=== PATIENT | male | born 1965 | race Caucasian/White ===

== ENCOUNTER 2019-05-26 05:58 | Day surgery (SDC) | payer BC, OTHER ==
[2019-05-24 10:33] VITALS: BMI 30.9
--- NOTE | 2019-05-25 22:25 | HP ---
HISTORY AND PHYSICAL DATE OF SURGERY: 05/26/2019 HISTORY OF PRESENT ILLNESS: Rod Dyer is a 53-year-old patient seen with progressive left shoulder pain. Treatment options were discussed. He elected to proceed with arthroscopy. Consent was obtained. Medical clearance was provided by Dr. Daniel. PAST MEDICAL HISTORY: 1. Hyperlipidemia. 2. Hypertension. 3. Dxp-jveqhlr-rtobdbaac diabetes. PAST SURGICAL HISTORY: Ankle surgery. DAILY MEDICATIONS: 1. Atorvastatin. 2. Lisinopril. 3. Metformin. ALLERGIES: NONE. SOCIAL HISTORY: He denies tobacco use. PHYSICAL EVALUATION OF LEFT SHOULDER: Flexion 150 degrees, abduction 140 degrees, external rotation 0 with pain and weakness. Tenderness along the anterolateral acromion and rotator cuff insertion site. Impingement sign is positive at 90. Drop-arm sign is positive. Distal neurovascular exam is intact. IMAGING: Left shoulder radiographs revealed a type 2 anterior acromion, acromioclavicular joint osteoarthritis, and cystic changes of the tuberosity. Left shoulder MRI revealed a massive retracted rotator cuff tendon tear. IMPRESSION: 1. Left shoulder impingement with retracted rotator cuff tendon tear. 2. Left shoulder acromioclavicular joint osteoarthritis. 3. Hypertension. 4. Hyperlipidemia. 5. Pkr-amxdiit-krfiwalwd diabetes. PLAN: Left shoulder arthroscopy with subacromial decompression, possible arthroscopic rotator cuff repair, possible Urvashi procedure and debridement. MMODL / IJN: [id number] /
[~2019-05-26 05:58] MED LIST: DEXAMETHASONE SOD PHOSPHATE 10 MG/ML 1 ML VIAL IV ONE; HYDROmorphone 0.5 MG/0.5 ML SYRINGE IVP PRN; LACTATED RINGERS 1,000 ML IV SCH; MIDAZOLAM 2 MG/2 ML VIAL IV PRN; ONDANSETRON 4 MG/2 ML VIAL IVP ONE
[2019-05-26] MEDS ORDERED: ONDANSETRON 4 MG/2 ML VIAL IVP ONE (06:38)
[2019-05-26] MEDS ORDERED: DEXAMETHASONE SOD PHOSPHATE 10 MG/ML 1 ML VIAL IV ONE (06:39)
[2019-05-26 06:44] LABS: Glucose,Whole Blood 141 mg/dL (75-99)
[2019-05-26] MEDS ORDERED: fentaNYL (PF) 50 MCG/ML 2 ML AMP ONE (07:19)
[2019-05-26] MEDS ORDERED: MIDAZOLAM 2 MG/2 ML VIAL ONE (07:19)
[2019-05-26] MEDS ORDERED: ePHEDrine SULFATE/0.9% NACL/PF 50 MG/5 ML SYRINGE IV ONE (07:19)
[2019-05-26] MEDS ORDERED: PROPOFOL 10 MG/ML 20 ML VIAL IV ONE (07:19)
[2019-05-26] MEDS ORDERED: DEXAMETHASONE SOD PHOSPHATE 4 MG/ML 1 ML VIAL ONE (07:19)
[2019-05-26] MEDS ORDERED: LIDOCAINE 1% INJ 10MG/ML (20 ML MDV) ONE (07:19)
[2019-05-26] MEDS ORDERED: ROPIVACAINE 5 MG/ML 30 ML VIAL ONE (07:19)
[2019-05-26] MEDS ORDERED: PHENYLEPHRINE-0.9% NACL SYG 1 MG/10 ML SYRINGE ONE (07:19)
[2019-05-26] MEDS ORDERED: SUCCINYLCHOLINE CHLORIDE 100 MG/5 ML SYR IV ONE (07:19)
--- NOTE | 2019-05-26 09:12 | P.OP ---
Date of Procedure: 05/26/19 Preoperative Diagnosis: Left shoulder impingement Postoperative Diagnosis: 1. Left shoulder rotator cuff tear 2. Left shoulder impingement 3. Left shoulder acromioclavicular joint osteoarthritis 4. Left shoulder partial long head biceps tendon tear 5. Left shoulder superficial labral tear Procedure(s) Performed: 1. Left shoulder arthroscopic rotator cuff repair 2. Left shoulder arthroscopic subacromial decompression 3. Left shoulder arthroscopic Urvashi procedure 4. Left shoulder arthroscopic biceps tenotomy 5. Left shoulder arthroscopic debridement labral tear Implants: 44.75 Arthrex swivel lock anchors Anesthesia: GETA, regional (Interscalene block) Surgeon: Matt Gallegos Passenger Booking Clerk #1: Joce Adame Estimated Blood Loss (ml): 7 Pathology: none sent Condition: stable Disposition: PACU Indications for Procedure: 53-year-old patient seen with progressive left shoulder pain. After having treatment options discussed, he elected to proceed with arthroscopy. Operative Findings: see description of procedure Description of Procedure: Patient underwent an interscalene block by department of anesthesia for postoperative pain management. The patient was then taken to the operative suite. The patient underwent a general anesthetic by the department of anesthesia. The patient was placed into a lateral position and secured. There was appropriate padding of the bony prominence. Left shoulder was then prepped and draped in normal sterile orthopedic fashion. We placed the extremity in 10 pounds of longitudinal traction. A posterior incision was now made for a posterior working portal site. The trocar and cannula were inserted into the glenohumeral joint. Arthroscopy was initiated. Spinal needle was now inserted anteriorly, to ascertain the anterior working portal site. An incision was now made in that area, a trocar was inserted followed by a probe. There was an obvious massive rotator cuff tear could visualize from the glenohumeral side. There was superficial tearing of the anterior and superior labrum. There was partial tearing long head biceps tendon. I performed an arthroscopic biceps tenotomy. I debrided the superficial labral tear down to stable labral tissue. The residual labrum was probed and found to be stable. Instruments were now removed from the glenohumeral joint. Utilizing the posterior working portal site, the trocar and cannula were inserted into the subacromial space. Arthroscopy initiated. I made an incision 2 fingerbreadths lateral to the acromion. I introduced my trocar followed by my ArthroCare ablator. I now began ablating thick subacromial bursal tissue, which exposed the undersurface of the anterior acromion. There was diminished subacromial space. There was a very prominent anterior acromion. A motorized bur was introduced and a subacromial decompression was performed. I also excised some osteophytes off the inferior aspect of the distal clavicle. The AC joint was visualized and noted to be fairly arthritic. The motorized bur was introduced in the anterior portal site and a Urvashi procedure was performed without difficulty, decompressing the AC joint nicely. I turned my attention to the rotator cuff. There was a 3 cm rotator cuff tear. It was fairly retracted patella was able to pull it over the footprint without much tension. I debrided the margins getting down to stable tendon tissue. I introduced my motorized bur and abraded the footprint area, getting some petechial bleeding. I now made an accessory portal site off the lateral aspect of the acromion. I punched 2 holes medial for medial row fixation with the assistance of Tato RODNEY carefully tapping the punch with a mallet as I held the punch and the camera. I now introduced both anchors into the pre-punched holes and Tato RODNEY tapped them with the mallet as I held anchors and the camera. Tato RODNEY now screwed the anchors in place a while I held the anchor guide and camera. All 8 limbs of suture were now passed through good bites of rotator cuff tendon. I now punched 2 holes for lateral row fixation again I held the punch and camera while Tato RODNEY used a mallet to tap in the punch. We now passed sutures through both anchors and individually I introduced the anchors into the pre- punch holes I held the anchor guide in position with one hand holding the camera with the other hand while Tato RODNEY tensioned the sutures and screwed in the anchors one at a time. All residual suture limbs were now clipped. We had good compression of the tendon along the entire footprint. I injected 1 mL Renyte intra-articular. Instruments now removed from the portal sites. All portal sites were approximated with nylon suture. Sterile dressings were applied followed by a shoulder immobilizer. Joce RODNEY assisted in this complex case. The patient was awakened, transferred to a bed, and taken to recovery in stable condition.
[2019-05-26 09:21] VITALS: TEMP 97
[2019-05-26 09:28] LABS: Glucose,Whole Blood 199 mg/dL (75-99)
[2019-05-26 09:43] VITALS: RESP 16
[2019-05-26] MEDS ORDERED: LACTATED RINGERS 1,000 ML IV ONE (09:43)
[2019-05-26 11:27] VITALS: BP 144/70; PULSE 108
--- NOTE | 2019-05-27 07:20 | P.ANPRN ---
Procedure Note - Anesthesia - Nerve Block Performed Left Interscalene Single Time Out Performed: Yes Date of Procedure: 05/26/19 Procedure Start Time: 07:02 Procedure Stop Time: 07:09 Location of Patient Procedure: PreOp Indication: Acute Post-Operative Pain, Requested by Surgeon Sedation Type: Sedate with meaningful contact maintained Preparation: Sterile Prep, Sterile Dressing Position: Supine Needle Types: Pajunk Needle Gauge: 21 Ultrasound used to visualize needle placement: Yes Ultrasound used to observe medication spread: Yes Blood Aspirated: No Pain Paresthesia on Injection Noted: No Resistance on Injection: Normal Image Stored and Saved: Yes Events: Uneventful and Well Tolerated (ropi .5% 30cc plus dexamethasone 4mg)
== END 2019-05-26 10:35 | disposition home or self-care (01) ==
LOC: OR 05:58
PROVIDERS: ATTEND Orthopaedic Surgery
DX: M75.102 Unspecified rotator cuff tear or rupture of left shoulder, not specified as traumatic (principal); M75.42 Impingement syndrome of left shoulder; M19.012 Primary osteoarthritis, left shoulder; S46.112A Strain of muscle, fascia and tendon of long head of biceps, left arm, initial encounter; S43.432A Superior glenoid labrum lesion of left shoulder, initial encounter; M25.712 Osteophyte, left shoulder; X58.XXXA Exposure to other specified factors, initial encounter; I10 Essential (primary) hypertension; E78.5 Hyperlipidemia, unspecified; E11.9 Type 2 diabetes mellitus without complications; Z79.84 Long term (current) use of oral hypoglycemic drugs; Z79.899 Other long term (current) drug therapy
CPT/HCPCS: 29826; 29827; 29824; 64415; 76942; C1713 ×2; Q4212; J2250; J1100 ×2; J0690; J2405; J2001; J3010; J2795; J2370; J0330; J2704

== ENCOUNTER → 2019-06-13 | Outpatient (CLI) | payer OTHER ==
--- NOTE | 2019-06-13 12:56 | US ---
EXAMINATION TYPE: US venous doppler duplex LE RT DATE OF EXAM: 06/13/2019 12:37 PM COMPARISON: NONE CLINICAL HISTORY: 53-year-old male R Leg, R60.0 Edema. Patient c/o right lateral calf pain today; pos t left rotator cuff surgery 14 days ago SIDE PERFORMED: Right TECHNIQUE: The lower extremity deep venous system is examined utilizing real time linear array sonog ayaan with graded compression, doppler sonography and color-flow sonography. FINDINGS: VESSELS IMAGED: Common Femoral Vein Deep Femoral Vein Greater Saphenous Vein * Femoral Vein Popliteal Vein Small Saphenous Vein * Proximal Calf Veins (* superficial vessels) Right Leg: Negative for DVT. No fluid seen at patient's pain area. A borderline sized 1.5 cm short axis right inguinal lymph node is incidentally noted. IMPRESSION: 1. No evidence for DVT within the right lower extremity imaged from the groin to the upper calf. 2. Borderline sized 1.5 cm right inguinal lymph node, likely reactive/post inflammatory. 3. No abnormal fluid collection identified along the lateral calf at the site of patient's pain.
== END | disposition home or self-care (01) ==
LOC: RADUSWWP 12:06
PROVIDERS: ATTEND Internal Medicine
DX: M79.661 Pain in right lower leg (principal); R60.0 Localized edema

== ENCOUNTER → 2020-12-12 | Outpatient (CLI) | payer OTHER ==
[2020-12-13 00:09] LABS: African American GFR (CKD) 109.5 (60.0-200.0); Albumin 4.1 g/dL (3.80-4.90); Albumin/Globulin Ratio 2.73 (1.60-3.17); BUN/Creat Ratio 16.67 Ratio (12.00-20.00); Calcium 9.2 mg/dL (8.7-10.3); Chol/HDL Ratio 4.82; Globulin 1.5 g/dL (1.6-3.3); LDL Cholesterol,Calculated 92.4 mg/dL (0.0-131.0); Non-African American GFR(CKD) 94.5 (60.0-200.0); Potassium 4.2 mmol/L (3.5-5.5); Total Bilirubin 0.6 mg/dL (0.3-1.2); Total Protein 5.6 g/dL (6.2-8.2); VLDL Calculation 37.6 mg/dL (5.00-40.00)
[2020-12-13 00:16] LABS: PSA Annual Screen 1.4 ng/mL (0.0-4.0)
== END | disposition home or self-care (01) ==
LOC: LABWHC1 11:05
PROVIDERS: ATTEND Nurse Practitioner Adult Health
DX: I10 Essential (primary) hypertension (principal); E11.9 Type 2 diabetes mellitus without complications; E78.5 Hyperlipidemia, unspecified
CPT/HCPCS: 80061; 80053; 84443; 82306; 36415; G0103

== ENCOUNTER → 2021-07-23 | Outpatient (CLI) | payer OTHER ==
--- NOTE | 2021-07-23 12:49 | US ---
EXAMINATION TYPE: US thyroid st tissue head/neck DATE OF EXAM: 07/23/2021 COMPARISON: NONE CLINICAL HISTORY: R22.1 neck nodule. Patient has palpable anterior neck mass. Patient states 4 weeks ago he had very enlarged lymph nodes causing difficulty swallowing. After antibiotic, patient states swelling is much better but now feels this anterior lump. History of thyroid nodule. GLAND SIZE: Right Lobe: 4.5 x 2.2 x 1.8 cm Overall Parenchyma: homogenous Left Lobe: 4.3 x 2.1 x 1.7 cm Overall Parenchyma: homogeneous Isthmus Thickness: 0.5 cm NODULES RIGHT: # of nodules measured on right: 0 LEFT: # of nodules measured on left: 1 1. 0.7 X 0.6 x 0.5 cm, mid mid, solid or almost completely solid, hypoechoic nodule, which is wider than tall, with smooth margins, without echogenic foci. Prior size: No previous ISTHMUS: # of nodules measured in the isthmus: 0 Bilateral neck scanned, no evidence of lymphadenopathy. bilateral sub centimeter lymph nodes noted. Anterior visible/palpable lump at area of "rodríguez apple" = complex measuring 3.6 x 2.5 x 2.0 cm contai veena internal echos (? blood) highly vascular on outer edges of mass. IMPRESSION: Nonspecific thyroid nodularity. Consider tissue diagnosis of the large complex lesion.
== END | disposition home or self-care (01) ==
LOC: RADUSWWP 11:52
PROVIDERS: ATTEND Internal Medicine
DX: E04.1 Nontoxic single thyroid nodule (principal)
CPT/HCPCS: 76536

== ENCOUNTER → 2022-04-10 | Outpatient (CLI) | payer OTHER ==
--- NOTE | 2022-04-10 14:53 | MR ---
EXAMINATION TYPE: MR shoulder RT wo con DATE OF EXAM: 04/10/2022 COMPARISON: Outside right shoulder x-ray February 14, 2022 HISTORY: RIGHT SHOULDER PAIN for 6 months with difficulty raising arm overhead TECHNIQUE: Multiplanar, multisequence imaging of the right shoulder is performed without contrast. FINDINGS: Rotator Cuff: Complete retracted tear of the anterior one half distal supraspinatus tendon with stump retracted to level of the acromioclavicular joint coronal image 10. Infraspinatus tendon remains int act with some areas of increased signal and partial tearing noted along its course. Subscapularis ten don intact. Rotator cuff muscle block shows mild fatty replacement and atrophy of the supraspinatus m uscular bulk. Acromioclavicular Joint: Moderate narrowing with more severe capsular hypertrophy and bony formation along the superior aspect of the distal clavicle. Mild to moderate spurring Glenohumeral Joint: Moderate narrowing with small joint effusion. No significant spurring. Labrum: The superior labrum shows increased signal consistent with degenerative tearing. Biceps Tendon: The long head of biceps is in normal location within bicipital groove. Bone marrow signal: Subchondral cystic change superolateral humeral head. Other: No additional significant abnormality is appreciated. IMPRESSION: 1. Full-thickness retracted tear of the posterior one half fibers of the supraspinatus tendon. There is mild generalized muscular atrophy of the supraspinatus muscle bulk. 2. Moderate to severe AC joint arthropathy as detailed above.
== END | disposition home or self-care (01) ==
LOC: RADMRIMAIN 07:24
PROVIDERS: ATTEND Orthopaedic Surgery
DX: M12.811 Other specific arthropathies, not elsewhere classified, right shoulder (principal)

== ENCOUNTER 2022-06-05 07:46 | Day surgery (SDC) | payer OTHER ==
[2022-05-30 14:43] VITALS: BMI 31.7
--- NOTE | 2022-06-05 05:40 | HP ---
HISTORY AND PHYSICAL DATE OF SURGERY: Surgery is scheduled for 06/05/2022. HISTORY OF PRESENT ILLNESS: Rod Dyer is a 56-year-old gentleman, seen with progressive right shoulder pain. We discussed options for treatment. He elected to proceed with right shoulder arthroscopy. Consent was obtained. PAST MEDICAL HISTORY: Hypertension, hyperlipidemia, oeh-dkkmkrs-mvttzkuci diabetes. PAST SURGICAL HISTORY: Shoulder arthroscopy, ankle surgery. DAILY MEDICATIONS: 1. Atenolol. 2. Atorvastatin. 3. Glipizide. 4. Metformin. ALLERGIES: None. SOCIAL HISTORY: Denies tobacco use. PHYSICAL EVALUATION OF THE RIGHT SHOULDER: Flexion is 150 degrees, abduction is 140 degrees, external rotation is 30 degrees with pain and weakness. Tenderness along the anterolateral acromion, rotator cuff insertion. Impingement is positive at 90 degrees. Cross-body adduction sign is positive. Drop-arm sign is positive. Distal neurovascular exam is intact. RADIOGRAPHS: Right shoulder radiographs revealed a type 2 acromion, cystic changes of the greater tuberosity. MRI of the right shoulder revealed a retracted rotator cuff tendon tear, acromioclavicular joint osteoarthritis. IMPRESSION: 1. Right shoulder impingement with retracted rotator cuff tendon tear. 2. Right shoulder acromioclavicular joint osteoarthritis. 3. Hypertension. 4. Hyperlipidemia. 5. Tzi-eqpteov-wjhaerkbl diabetes. PLAN: Right shoulder arthroscopy with subacromial decompression, arthroscopic rotator cuff repair, Urvashi procedure, and debridement. MMODL / IJN: [id number] /
[2022-06-05] MEDS ORDERED: HYDROmorphone 0.5 MG/0.5 ML SYRINGE IVP PRN (07:54)
[2022-06-05] MEDS ORDERED: LACTATED RINGERS 1,000 ML IV SCH (07:54)
[2022-06-05] MEDS ORDERED: SCOPOLAMINE 1 MG/72 HR PATCH TRANSDERM ONE (07:54)
[2022-06-05] MEDS ORDERED: LIDOCAINE 1% (10MG/ML) FOR IV START INTRADERMA PRN (07:54)
[2022-06-05] MEDS ORDERED: DEXAMETHASONE SOD PHOSPHATE 4 MG/ML 1 ML VIAL IV ONE (07:54)
[2022-06-05] MEDS ORDERED: ONDANSETRON 4 MG/2 ML VIAL IVP ONE (07:54)
[2022-06-05 08:43] LABS: Glucose,Whole Blood 177 mg/dL (70-110)
[2022-06-05] MEDS ORDERED: MIDAZOLAM 2 MG/2 ML VIAL IVP ONE (09:16)
[2022-06-05] MEDS ORDERED: ROPIVACAINE 5 MG/ML 30 ML VIAL ONE (09:35)
[2022-06-05] MEDS ORDERED: fentaNYL (PF) 50 MCG/ML 2 ML AMP ONE (09:35)
[2022-06-05] MEDS ORDERED: SUCCINYLCHOLINE CHLORIDE 200 MG/10 ML VIAL IV ONE (09:35)
[2022-06-05] MEDS ORDERED: MIDAZOLAM 2 MG/2 ML VIAL ONE (09:35)
[2022-06-05] MEDS ORDERED: LIDOCAINE 2% INJ 20 MG/ML (2 ML VIAL) ONE (09:35)
[2022-06-05] MEDS ORDERED: PROPOFOL 10 MG/ML 20 ML VIAL IV ONE (09:35)
[2022-06-05] MEDS ORDERED: DEXAMETHASONE SOD PHOSPHATE 4 MG/ML 1 ML VIAL ONE (09:35)
[2022-06-05] MEDS ORDERED: LACTATED RINGERS 1,000 ML IV ONE (10:40)
--- NOTE | 2022-06-05 11:32 | P.OP ---
Date of Procedure: 06/05/22 Preoperative Diagnosis: Right shoulder impingement Postoperative Diagnosis: 1. Right shoulder rotator cuff tear 2. Right shoulder impingement 3. Right shoulder partial long head biceps tendon tear 4. Right shoulder superficial superior labral tear Procedure(s) Performed: 1. Right shoulder arthroscopic rotator cuff repair 2. Right shoulder arthroscopic subacromial decompression 3. Right shoulder arthroscopic biceps tenotomy 4. Right shoulder arthroscopic debridement labral tear Implants: 3Arthrex 4.75 swivel lock anchors 1Arthrex 5.5 swivel lock anchor Anesthesia: GETA, regional (Interscalene block) Surgeon: Matt Gallegos Emergency Physician #1: Joce Adame Estimated Blood Loss (ml): 11 Pathology: none sent Condition: stable Disposition: PACU Indications for Procedure: 56-year-old gentleman seen with progressive right shoulder pain. After treatment options were discussed with him, he elected to proceed with arthroscopy. Operative Findings: See description of procedure Description of Procedure: Patient underwent an interscalene block by department of anesthesia. The patient was then taken to the operative suite. The patient underwent a general anesthetic by the department of anesthesia. The patient was placed into a lateral position and secured. There was appropriate padding of the bony prominence. Right shoulder was then prepped and draped in normal sterile orthopedic fashion. We placed the extremity in 10 pounds of longitudinal traction. A posterior incision was now made for a posterior working portal site. The trocar and cannula were inserted into the glenohumeral joint. Arthroscopy was initiated. Spinal needle was now inserted anteriorly, to ascertain the anterior working portal site. An incision was now made in that area, a trocar was inserted followed by a probe. There was some hyperemia and partial tearing long head biceps tendon. There were grade 1/2 chondromalacia changes of the glenoid fossa. There was some tearing and fraying of the superior labrum. I debrided out the superficial tearing of the superior labrum. I performed an arthroscopic biceps tenotomy. The residual labrum was probed and was found to be stable. Instruments were now removed from glenohumeral joint. Utilizing the posterior working portal site, the trocar and cannula were inserted into the subacromial space. Arthroscopy initiated. I made an incision 2 fingerbreadths lateral to the acromion. I introduced my trocar followed by my ArthroCare ablator. I now began ablating thick subacromial bursal tissue, which exposed the undersurface of the anterior acromion. There was diminished subacromial space. There was a very prominent anterior acromion. A motorized bur was introduced and a subacromial decompression was performed. I also excised some osteophytes off the inferior aspect of the distal clavicle. The AC joint was visualized and noted to be moderately arthritic, I did not think enough toward a Urvashi procedure. I turned my attention to the rotator cuff. There was a 3.5 cm rotator cuff tear. I debrided the margins getting down to stable tendon tissue. There was a large intrasubstance component centrally. I repaire d that with 3 converging sutures. I could now mobilize the tendon over the footprint. I introduced my motorized bur and abraded the footprint area, getting some petechial bleeding. I now made an accessory portal site off the lateral aspect of the acromion. I punched 2 holes medial for medial row fixation with the assistance of Tato RODNEY carefully tapping the punch with a mallet as I held the punch and the camera. I now introduced both anchors into the pre- punched holes and Tato RODNEY tapped them with the mallet as I held anchors and the camera. Tato RODNEY now screwed the anchors in place a while I held the anchor guide and camera. All 8 limbs of suture were now passed through good bites of rotator cuff tendon. I now punched 2 holes for lateral row fixation again I held the punch and camera while Tato RODNEY used a mallet to tap in the punch. We now passed sutures through both anchors and individually I introduced the anchors into the pre-punch holes I held the anchor guide in position with one hand holding the camera with the other hand while Tato RODNEY tensioned the sutures and screwed in the anchors one at a time. All residual suture limbs were now clipped. We had good compression of the tendon along the entire footprint. Instruments now removed from the portal sites. All portal sites were approximated with nylon suture. Sterile dressings were applied followed by a shoulder immobilizer. Joce RODNEY assisted in this complex case. The patient was awakened, transferred to a bed, and taken to recovery in stable condition.
[2022-06-05 11:35] VITALS: TEMP 987
[2022-06-05] MEDS ORDERED: HYDROcodone/APAP 7.5-325MG 1 EACH TAB ONE (12:57)
[2022-06-05] MEDS ORDERED: HYDROcodone/APAP 7.5-325MG 1 EACH TAB PO ONE (12:58)
[2022-06-05 13:16] VITALS: BP 158/82; PULSE 72; RESP 18
--- NOTE | 2022-06-05 19:36 | P.ANPRN ---
Procedure Note - Anesthesia - Nerve Block Performed Right Interscalene Single Time Out Performed: Yes Date of Procedure: 06/05/22 Procedure Start Time: :15 Procedure Stop Time: : Location of Patient: PreOp Indication: Acute Post-Operative Pain, Requested by Surgeon Sedation Type: Sedate with meaningful contact maintained Preparation: Sterile Prep Position: Supine Needle Types: Pajunk Needle Gauge: 21 Ultrasound used to visualize needle placement: Yes Ultrasound used to observe medication spread: Yes Blood Aspirated: No Pain Paresthesia on Injection Noted: No Resistance on Injection: Normal Image Stored and Saved: Yes Events: Uneventful and Well Tolerated (ropi .5% 20cc plus dexamethasone 4mg)
== END 2022-06-05 13:50 | disposition home or self-care (01) ==
LOC: OR 07:46
PROVIDERS: ATTEND Orthopaedic Surgery
DX: M75.41 Impingement syndrome of right shoulder (principal); M75.111 Incomplete rotator cuff tear or rupture of right shoulder, not specified as traumatic; S46.911A Strain of unspecified muscle, fascia and tendon at shoulder and upper arm level, right arm, initial encounter; S43.431A Superior glenoid labrum lesion of right shoulder, initial encounter; M19.011 Primary osteoarthritis, right shoulder; I10 Essential (primary) hypertension; E78.5 Hyperlipidemia, unspecified; E11.9 Type 2 diabetes mellitus without complications; Z79.899 Other long term (current) drug therapy; X58.XXXA Exposure to other specified factors, initial encounter
CPT/HCPCS: 29827; 29826; 64415; J2250; J1100; J0690; J2405; 76942

== ENCOUNTER → 2022-12-29 | Outpatient (CLI) | payer OTHER ==
[2022-12-29 14:18] LABS: African American GFR (CKD) >90 (>60 ml/min/1.73 sqM); Blood Urea Nitrogen 19 mg/dL (9-20); Non-African American GFR(CKD) >90 (>60 ml/min/1.73 sqM)
--- NOTE | 2022-12-29 15:18 | CT ---
EXAMINATION TYPE: CT soft tissue neck w con DATE OF EXAM: 12/29/2022 HISTORY: left side neck swelling, bb placed over area COMPARISON: NONE CT DLP: 698 mGycm. Automated Exposure Control for Dose Reduction was Utilized. TECHNIQUE: CT scan of the neck is performed with IV Contrast, patient injected with 100 mL of Isovue 300, axial images are obtained, coronal and sagittal reformatted images are reviewed. FINDINGS: Airway: There are few tiny hypodense nodules scattered throughout the bilateral thyroid lobes. No gre ater than 1.0 cm thyroid nodules. No obvious tongue base or mucosal mass or neoplasm. Parotid/submandibular glands: No gross abnormality seen. Carotid/Vascular Structures: Mild peripheral plaque proximal left internal carotid artery. Osseous Structures: Grade 1 retrolisthesis C3 on C4. Mild to moderate disc space narrowing C3-C4 leve l. Mild to moderate disc space narrowing with moderate spurring C6-C7 level. Other: Corresponding to palpable abnormality left neck is metallic BB axial image 42. There is hetero geneous 3.1 x 2.4 cm oval mass at this level having local mass effect causing carotid and jugular ves sels to be deviated laterally. Just below this there is second heterogeneous oval 3.2 x 2.2 cm mass a xial image 48 having local mass effect being at the superior level of the hyoid bone. This extends in feriorly past the level of the inferior hyoid bone. Nasal septum is deviated to left of midline. IMPRESSION: Abnormal heterogeneous left-sided neck masses suspicious for abnormal probable necrotic a denopathy. Primary throat or tongue base mucosal neoplasm needs to be considered despite lack of obvi ous mass on CT. Advise ENT referral to further evaluate. PET/CT follow-up may be beneficial to furnaidne r evaluate.
== END | disposition home or self-care (01) ==
LOC: RADCTMAIN 13:42
PROVIDERS: ATTEND Internal Medicine
DX: R22.1 Localized swelling, mass and lump, neck (principal)
CPT/HCPCS: 82565; 84520; 70491; 36415; Q9967

== ENCOUNTER 2023-01-21 06:20 | Day surgery (SDC) | payer OTHER ==
[2023-01-21] MEDS ORDERED: LACTATED RINGERS 1,000 ML IV SCH (06:43)
[2023-01-21] MEDS ORDERED: LIDOCAINE 1% (10MG/ML) FOR IV START INTRADERMA PRN (06:43)
[2023-01-21 06:49] VITALS: RESP 16
[2023-01-21 07:03] LABS: Glucose,Whole Blood 99 mg/dL (70-110)
[2023-01-21] MEDS ORDERED: PROPOFOL 10 MG/ML 20 ML VIAL IV ONE (07:41)
--- NOTE | 2023-01-21 07:57 | P.PCN ---
Date of Procedure: 01/21/23 Procedure(s) Performed: BRIEF HISTORY: Patient is a 57-year-old pleasant white male scheduled for an elective colonoscopy as a part of screening for colon cancer. PROCEDURE PERFORMED: Colonoscopy with snare polypectomy.. PREOPERATIVE DIAGNOSIS: Screening for colon cancer. IV sedation per Anesthesia. PROCEDURE: After informed consent was obtained, the patient, was brought into the endoscopy unit. IV sedation was administered by Anesthesia under continuous monitoring. Digital rectal examination was normal. Initially the Olympus CF-160 flexible video colonoscope was then inserted in the rectum, gradually advanced into the cecum without any difficulty. Careful examination was performed as the scope was gradually being withdrawn. Ileocecal valve and the appendiceal orifice were visualized and appeared normal. Prep was excellent. Mucosa of the cecum, ascending colon, transverse colon, descending colon, sigmoid colon, and rectum appeared normal. In the distal rectum at 7 cm from the anal verge there was a 1.3 cm submucosal polyp that was removed by snare polypectomy and complete polypectomy accomplished. Retroflexion was performed in the rectum and grade 2 internal hemorrhoids were seen. The patient tolerated the procedure well. IMPRESSION: 1.3 cm distal rectal submucosal polyp status post polypectomy Grade 2 internal hemorrhoids RECOMMENDATIONS: Findings of this examination were discussed with the patient as well as his family.. He was advised to follow with the biopsy results. Based on the the biopsy results will plan a repeat surveillance colonoscopy in 3 years.
[2023-01-21 08:17] VITALS: BP 134/79; PULSE 69
== END 2023-01-21 08:42 | disposition home or self-care (01) ==
LOC: ORWHC2ENDO 06:20
PROVIDERS: ATTEND Internal Medicine Gastroenterology
DX: Z12.11 Encounter for screening for malignant neoplasm of colon (principal); D3A.026 Benign carcinoid tumor of the rectum; K63.5 Polyp of colon; K64.1 Second degree hemorrhoids; Z79.899 Other long term (current) drug therapy; I10 Essential (primary) hypertension; E78.5 Hyperlipidemia, unspecified; Z98.890 Other specified postprocedural states
CPT/HCPCS: 88305; 88342; 88341; 45385; J2704

== ENCOUNTER 2023-02-26 12:46 | Day surgery (SDC) | payer OTHER ==
[2023-02-26 13:14] VITALS: TEMP 98.3
[2023-02-26 14:14] VITALS: RESP 16
[2023-02-26 14:15] VITALS: BP 114/76; PULSE 76
--- NOTE | 2023-02-26 14:21 | US ---
ULTRASOUND GUIDED CORE BIOPSY LEFT NECK MASS: CLINICAL HISTORY: Left neck mass FINDINGS: The procedure was explained to the patient. The risks, complications, benefits and alternatives were discussed and any questions were answered. Informed consent was obtained. Patient was placed supin e on the ultrasound table and prepped and draped in the usual sterile fashion. Utilizing a 8 gauge c ore biopsy needle, three passes were made into the left neck mass. Patient was stable throughout the procedure. Pathology is pending. All elements of maximal barrier technique were utilized. IMPRESSION: 1. Successful ultrasound guided core biopsy left neck mass.
== END 2023-02-26 13:50 | disposition home or self-care (01) ==
LOC: RADPROMAIN 12:46
PROVIDERS: ATTEND Internal Medicine
DX: C18.9 Malignant neoplasm of colon, unspecified (principal)
CPT/HCPCS: 38505; 76942; 88305; 88341; 88342

== ENCOUNTER → 2023-03-13 | Outpatient (CLI) | payer OTHER ==
--- NOTE | 2023-03-13 23:02 | PE ---
EXAMINATION TYPE: PET CT fusion skull to thigh DATE OF EXAM: 03/13/2023 CLINICAL INDICATION:Male, 57 years old with history of C7A.8; TECHNIQUE: Following the intravenous administration of 11.75 mCi of F-18 FDG, whole body images are performed from the skull base to the midthigh. Images are reviewed on the computer in the coronal, axial, and sagittal planes. Reconstructed rotating images are created on independent workstation and reviewed on the computer. A non-contrast CT is performed in conjunction with the PET scan. Glucose level 106 mg/dL CT DLP: 424.0 mGycm, Automated exposure control for dose reduction was used. COMPARISON: CT 12/29/2022, PET/CT None, FINDINGS: Mediastinal SUV mean is 1.45. Hepatic parenchyma SUV mean is 2.3. SKULL BASE AND NECK: Left neck lymph node measuring 2.5 x 3.2 cm demonstrating peripheral FDG activity central low activit y max SUV 3.8 Additional left-sided mass more superiorly measuring up to 2.4 cm Max SUV 3.8. CHEST, MEDIASTINUM, AND HILAR REGION: No suspicious radiotracer activity. ABDOMEN AND PELVIS: No suspicious radiotracer activity. MUSCULOSKELETAL STRUCTURES: No suspicious radiotracer activity. There is abnormal uptake within the right rib 8 anterior laterally correlating with fracture. OTHER CT: Bilateral carotid bifurcation atherosclerosis. Atherosclerosis of the coronary arteries the heart is mildly enlarged for size. The prostate gland is enlarged measuring up to 5.4 cm in transverse dimension. Right inguinal canal probably changes. IMPRESSION: 1. Abnormal left neck soft lesions with peripheral FDG activity. This may be one contiguous lesion v ersus 2 adjacent lesions. No evidence for FDG activity outside of the neck. 2. Anterior right rib 8 fracture which appears subacute.
== END | disposition home or self-care (01) ==
LOC: RADPETMAIN 11:02
PROVIDERS: ATTEND Internal Medicine
DX: C7A.8 Other malignant neuroendocrine tumors (principal); S22.31XA Fracture of one rib, right side, initial encounter for closed fracture; R22.1 Localized swelling, mass and lump, neck
CPT/HCPCS: 78815; A9552